=== PATIENT | female | born 1980 | race Caucasian/White ===

== ENCOUNTER 2020-03-05 09:00 | Inpatient (IN) ==
[2020-03-05] MEDS ORDERED: ONDANSETRON 4 MG/2 ML VIAL IV PRN (09:55)
[2020-03-05] MEDS: DIAZEPAM 10 MG TABLET PO PRN ×5 (12:36→23:45)
[2020-03-05] MEDS: THIAMINE 100 MG TABLET PO SCH ×2 (14:00→21:44)
[2020-03-05] MEDS: NICOTINE 21 MG PATCH TOPICAL SCH (14:01)
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
[2020-03-05] MEDS: ONDANSETRON 4 MG ODT TABLET SL PRN (15:15)
[2020-03-05] MEDS: 0.9 % SODIUM CHLORIDE 10 ML SYRINGE IV SCH ×2 (16:14→23:04)
[2020-03-05] MEDS: VITAMIN B COMPLEX 1 CAPSULE PO SCH (21:44)
[2020-03-05] MEDS: BACLOFEN 10 MG TABLET PO SCH (21:45)
[2020-03-05] MEDS: IBUPROFEN 800 MG TABLET PO PRN (21:45)
[2020-03-05] MEDS: DOCUSATE SODIUM 100 MG CAPSULE PO SCH (21:47)
[2020-03-05] MEDS: SENNOSIDES 1 TABLET PO SCH (21:47)
--- NOTE | 2020-03-05 23:03 | Internal Med History&Physical ---
HPI History of Present Illness Patient information: Note initiated : 03/05/20 at 11:00 pm Service Date, if different from initiated Date: [] Patient: Mehreen Devi 39 y/o F admitted on 03/05/20 for detox. Chief Complaint: [] History of present illness: This is a 39-year-old female with a no reported medical problems was admitted for alcohol withdrawal detoxification treatment. Patient has been drinking 5 vodka per day for the last few years. She reported I am a closet drinker patient denied any active other substance abuse or any family issues or other health issues. Review of system was unremarkable. Patient denied any active suicidal ideation. Patient had a previous attempt as a teenager when she tried to cut her vein. But no further suicidal ideation for the last few months. Patient lives with the family and good family support at home. Patient's dad has alcoholism and he drinks at home. Otherwise patient denied any social stressors or family stressors Constitutional Constitutional: Absent anorexia, excessive sweating, frequent falls, lethargy and snoring EENT Eyes: Absent irritation, loss of vision, photophobia, requires corrective lenses, spots in vision and tunnel vision Ears: Absent decreased hearing, ear discharge and tinnitus Nose, mouth and throat: Absent hoarseness, mouth pain, nasal obstruction, neck pain and post-nasal drip Breasts Breasts: Absent change in shape, mass and nipple discharge Cardiovascular Cardiovascular: Absent dyspnea, irregular heart rhythm, leg ulcers, palpatations, radiating pain and syncope Respiratory Respiratory: Absent cough, dyspnea, dyspnea on exertion, wheezing, stridor, pain on inspirtation, excessive phlegm production and change in phlegm color Gastrointestinal Gastrointestinal: Absent change in bowel habits, constipation, dyspepsia, excessive flatus, hematemesis, melena and tenesmus Genitourinary Genitourinary: Absent nipple discharge, post void dribbling, urinary frequency, urinary urgency and vaginal ordor Musculoskeletal Musculoskeletal: Absent limited range of motion, muscle weakness, numbness and tingling Neurological Neurological: Absent memory loss, radicular pain, syncope, vertigo and other Psychiatric Psychiatric: Absent depression, homicidal ideation, memory loss, paranoia and tactile Endocrine Endocrine: Absent deeping of the voice, flushing, palpitations and polyuria [facility] Medical History (Updated 06/29/20 @ 14:24 by Alexandria Quintana DO) Acid reflux (Chronic) Alcoholism (Chronic) Anxiety attack (Chronic) Daytime sleepiness (Chronic) Depression (Chronic) Difficulty communicating (Chronic) Difficulty sleeping (Chronic) Fatigue (Chronic) Fibromyalgia (Chronic) Generalized anxiety disorder (Chronic) Insomnia (Chronic) Joint pain (Chronic) Major depressive disorder (Chronic) Migraines (Chronic) Muscle pain (Chronic) PTSD (post-traumatic stress disorder) (Chronic) Raynauds disease (Chronic) Shakiness (Chronic) Stomach ulcer (Chronic) Withdrawal symptoms, alcohol (Chronic) Surgical History H/O colonoscopy (Chronic ~2017) Dr. Yoder History of hysterectomy (Chronic ~2017) History of knee surgery (Chronic ~2018) History of surgery (Chronic) Mass removed from inner thigh 2018 - Vaginal Repair History of wisdom tooth extraction (Chronic ~1994) Family History Mother Heart disease, congenital Adverse reaction to anesthetic agent Aspirated after anesthesia and HTN (hypertension) Migraines Brother Skin cancer Migraines Grandmother Colon cancer Maternal Adverse reaction to anesthetic agent Maternal Arthritis Maternal HTN (hypertension) Maternal Myocardial infarction Maternal Migraines Maternal CVA (cerebral vascular accident) Maternal Family/Other Colon cancer Uncle Son Migraines Social History (Updated 02/24/20 @ 08:48 by Camelia Vincent LPN) household members: family marital status: 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 status: Current every day smoker tobacco type: cigarettes per day: 20 alcohol intake frequency: former alcohol drinker substance use type: former substance user and marijuana MEDS/ALLERGIES Home Medications and Allergies Home Medications Medication Instructions Recorded Confirmed Type montelukast 10 mg tablet 10 mg PO QHS #30 tab 02/14/20 03/05/20 Rx disulfiram 250 mg tablet 250 mg PO QDAY #7 tab 02/16/20 03/05/20 Rx naltrexone 50 mg tablet 50 mg PO QDAY #20 tab 02/16/20 03/05/20 Rx Allergies Allergy/AdvReac Type Severity Reaction Status Date / Time lamotrigine [From Lamictal] Allergy Intermediate Other Verified 03/05/20 09:18 clindamycin AdvReac Mild Rash Verified 03/05/20 09:18 oxcarbazepine AdvReac Mild Rash Verified 03/05/20 09:18 Penicillins AdvReac Mild Nausea Verified 03/05/20 09:18 EXAM Constitutional Vitals: Temp Pulse Resp BP Pulse Ox 98.4 F 81 18 129/82 99 03/05/20 18:56 03/05/20 19:28 03/05/20 19:28 03/05/20 18:56 03/05/20 19:28 General appearance: no cooperative, no mild distress and no obese Head Head exam: Present atraumatic and normal inspection Eye Eye exam: Present EOMI; Absent periorbital swelling and scleral icterus ENT ENT exam: Present mucous membranes moist, normal exam and normal oropharynx Neck Neck exam: Absent lymphadenopathy, meningismus, tenderness and thyromegaly Respiratory Respiratory exam: Present normal respiratory exam and CTAB; Absent accessory muscle use, respiratory distress and wheezes Cardiovascular Cardiovascular exam: Absent irregular rhythm, JVD, RRR, +S3, +S4 and systolic murmur GI/Abdominal GI/Abdominal exam: Present soft and distended; Absent normal bowel sounds and diminished bowel sounds Extremities Exam Extremities exam: Present full ROM and normal inspection; Absent joint swelling, pedal edema and Pat's sign Neurological Exam Neurological exam: Present alert, CN II-XII intact, oriented X3 and reflexes normal; Absent motor sensory deficit Psychiatric Psychiatric exam: Absent agitated, anxious and depressed A/P Assessment and plan (1) Alcohol use disorder, severe, dependence: Status: Acute (2) Alcohol withdrawal: Status: Acute Qualifiers: Complication of substance-induced condition: uncomplicated Qualified Code(s): F10.230 - Alcohol dependence with withdrawal, uncomplicated (3) Generalized anxiety disorder: Status: Chronic Narrative A/P Narrative: Narrative: Acute alcohol withdrawal Patient was admitted for detoxification of alcohol withdrawal treatment Patient was started on CIWA protocol With a lorazepam and monitor CIWA scoring Patient at risk for seizures Patient denied any previous history of delirium tremens Behavioral health physician was consulted and following the patient No other reported medical problems DVT prophylaxis-frequent ambulation CODE STATUS-full code Time Spent With Patient Time: Total time spent is greater than 50% in coordination of care (as documented) at patient's floor/unit and/or counseling patient: QUALITY VTE Deep Vein Thrombosis/Pulmonary Embolism Present on Admission: No
[2020-03-06] MEDS: ONDANSETRON 4 MG ODT TABLET SL PRN ×3 (05:57→21:34)
[2020-03-06] MEDS: 0.9 % SODIUM CHLORIDE 10 ML SYRINGE IV SCH ×3 (06:09→21:34)
[2020-03-06] MEDS: IBUPROFEN 800 MG TABLET PO PRN (06:44)
[2020-03-06 06:47] LABS: Hematocrit 40.9 % (34.1-44.9); Mean Corpuscular HGB Conc 34.2 g/dL (31.0-36.0); Platelet Count 248 K/mcL (140-440); RBC 4.35 M/mcL (3.59-5.38); Red Cell Distribution Width 12.5 % (11.5-14.5); WBC 4.9 K/mcL (4.50-11.00)
[2020-03-06 06:58] LABS: INR 0.9 (0.9-1.1); Prothrombin Time 12.4 sec (11.9-14.5)
[2020-03-06] MEDS: DIAZEPAM 10 MG TABLET PO PRN ×5 (07:08→21:33)
[2020-03-06 07:09] LABS: ALT/SGPT 18 U/l (0-40); AST/SGOT 19 U/l (0-37); Albumin 4.3 gm/dL (3.2-5.2); Albumin/Globulin Ratio 1.9 (1.0-2.3); Alkaline Phosphatase 48 U/L (39-117); Bilirubin,Total 0.7 mg/dL (0.0-1.0); Blood Urea Nitrogen 18 mg/dl (6-20); Calcium 9.1 mg/dl (8.6-10.4); Carbon Dioxide 25 mmol/L (22-30); Chloride 102 mmol/L (96-108); Globulin 2.3 gm/dL (2.2-3.7); Glomerular Filtration Rate 92; Glucose 89 mg/dL (70-105)
[2020-03-06 07:29] LABS: Eosinophils % (Manual) 6 % (0-7); Lymphocytes % 36 % (15-49); Monocytes % (Manual) 5 % (1-12); Platelet Estimate NORMAL (NORMAL); RBC Morphology NORMAL (NORMAL); Reactive Lymphocytes 3 % (0-2); Segmented Neutrophils % 50 % (38-78)
[2020-03-06] MEDS: MULTIVIT,THER IRON,CA,FA & MIN 1 TABLET PO SCH (09:55)
[2020-03-06] MEDS: THIAMINE 100 MG TABLET PO SCH ×3 (09:55→21:33)
[2020-03-06] MEDS: VITAMIN B COMPLEX 1 CAPSULE PO SCH ×2 (09:55→21:33)
[2020-03-06] MEDS: BACLOFEN 10 MG TABLET PO SCH ×2 (09:56→21:33)
[2020-03-06] MEDS: NICOTINE 21 MG PATCH TOPICAL SCH (09:56)
[2020-03-06] MEDS: ENOXAPARIN 40 MG/0.4 ML SYRINGE SQ SCH (09:56)
[2020-03-06] MEDS: DOCUSATE SODIUM 100 MG CAPSULE PO SCH ×2 (09:59→23:49)
[2020-03-06] MEDS: GABAPENTIN 300 MG CAPSULE PO SCH ×3 (11:20→21:33)
--- NOTE | 2020-03-06 11:25 | Internal Med Progress Note ---
SUBJECTIVE Subjective Patient information: Note initiated : 03/06/20 at 11:23 am Service Date, if different from initiated Date: [] Patient: Mehreen Devi 39 y/o F admitted on 03/05/20 for detox. Chief Complaint: [] 39-year-old female with a no reported medical problems was admitted for alcohol withdrawal detoxification treatment. Patient has been drinking 5 vodka per day for the last few years. She reported I am a closet drinker patient denied any active other substance abuse or any family issues or other health issues. Review of system was unremarkable. Patient denied any active suicidal ideation. Patient had a previous attempt as a teenager when she tried to cut her vein. But no further suicidal ideation for the last few months. Patient lives with the family and good family support at home. Patient's dad has alcoholism and he drinks at home. Otherwise patient denied any social stressors or family stressors 03/06 Patient continued having some anxiety and depression Having some tremors and getting CIWA protocol with lorazepam Patient denied any other physical symptoms no constitutional symptoms No abdominal symptoms no diarrhea no constipation Interval history: Narrative: Constitutional Vitals: Vital Signs Temp Pulse Resp BP Pulse Ox 98.0 F 60 18 110/72 97 03/06/20 08:00 03/06/20 08:00 03/06/20 08:00 03/06/20 08:00 03/06/20 08:00 Period Temp Pulse Resp BP Sys/Candelaria Pulse Ox Last 24 Hr 97.6 F-98.4 F 60-81 12-18 95-135/63-93 97-99 Intake and Output 03/05/20 03/06/20 03/06/20 21:59 05:59 13:59 Intake Total 1160 300 240 Output Total 200 250 Balance 960 300 -10 Weight 187 lb 14.4 oz Intake & Output: Intake & Output 03/05/20 03/06/20 03/06/20 21:59 05:59 13:59 Intake Total 1160 300 240 Output Total 200 250 Balance 960 300 -10 Weight 187 lb 14.4 oz Intake: Oral 1160 300 240 Output: Void Amount 200 250 Other: Meal Breakfast Percent of Meal Consumed 75% Feeding Ability Independent Urine Appearance Clear Urine Color Straw Dark Yellow Urine Odor Normal Normal # Voids 1 1 General appearance: cooperative and no acute distress Head Head exam: Present atraumatic, normal inspection and normocephalic Eye Eye exam: Present EOMI; Absent periorbital swelling and scleral icterus ENT ENT exam: Present normal exam and normal oropharynx Neck Neck exam: Present normal inspection; Absent lymphadenopathy and tenderness Respiratory Respiratory exam: Absent accessory muscle use and respiratory distress Cardiovascular Cardiovascular exam: Present normal rate and rhythm; Absent bradycardia, JVD and tachycardia GI/Abdominal GI/Abdominal exam: Present normal bowel sounds and soft; Absent distended and tenderness Neurological Exam Neurological exam: Present alert, oriented X3 and reflexes normal; Absent motor sensory deficit Psychiatric Psychiatric exam: Present anxious and depressed; Absent agitated OBJ DATA Labs CBC & Chem 7: 03/06/20 05:37 03/06/20 05:37 Labs: Abnormal Lab Results 03/06/20 05:37 Reactive Lymphocytes 3 H Meds: Medications Baclofen (Lioresal) 10 mg PO BID [facility] Last Admin: 03/06/20 09:56 Dose: 10 mg Documented by: Diazepam (Valium) 10 mg PO Q1HP PRN PRN Reason: Anxiety/Agitation Last Admin: 03/06/20 11:20 Dose: 10 mg Documented by: Docusate Sodium (Colace) 100 mg PO BID [facility] Last Admin: 03/06/20 09:59 Dose: Not Given Documented by: Enoxaparin Sodium (Lovenox) 40 mg SQ DAILY [facility] Last Admin: 03/06/20 09:56 Dose: 40 mg Documented by: Gabapentin (Neurontin) 300 mg PO QID [facility] Last Admin: 03/06/20 11:20 Dose: 300 mg Documented by: Ibuprofen (Motrin) 400 mg PO Q6HP PRN; Protocol PRN Reason: Per Pain Protocol Iron Carb/Multivit/Locomotive Crane Engineer/Folic Acid (Multivitamin W/Minerals) 1 tab PO DAILY [facility] Last Admin: 03/06/20 09:55 Dose: 1 tab Documented by: Montelukast Sodium (Singular) 10 mg PO HS [facility] Nicotine (Nicoderm) 21 mg TOPICAL DAILY@1000 [facility] Last Admin: 03/06/20 09:56 Dose: 21 mg Documented by: Ondansetron HCl (Zofran Odt) 4 mg SL Q6HP PRN PRN Reason: Nausea And Vomiting Last Admin: 03/06/20 05:57 Dose: 4 mg Documented by: Pantoprazole Sodium (Protonix) 40 mg PO ACB [facility] Senna (Senokot) 2 tab PO HS [facility] Last Admin: 03/05/20 21:47 Dose: Not Given Documented by: Sodium Chloride (Saline Flush) 10 ml IV Q8 [facility] Last Admin: 03/06/20 06:09 Dose: Not Given Documented by: Thiamine HCl (Vitamin B1) 100 mg PO TID [facility] Stop: 03/08/20 09:01 Last Admin: 03/06/20 09:55 Dose: 100 mg Documented by: Vitamin B Complex (Vitamin B Complex) 1 cap PO BID [facility] Stop: 03/10/20 09:01 Last Admin: 03/06/20 09:55 Dose: 1 cap Documented by: A/P Assessment and plan (1) Alcohol use disorder, severe, dependence: Status: Acute (2) Alcohol withdrawal: Status: Acute Qualifiers: Complication of substance-induced condition: uncomplicated Qualified Code(s): F10.230 - Alcohol dependence with withdrawal, uncomplicated (3) Generalized anxiety disorder: Status: Chronic Narrative A/P Narrative: Narrative: Acute alcohol withdrawal Patient was admitted for detoxification of alcohol withdrawal treatment Patient was started on CIWA protocol With a lorazepam and monitor CIWA scoring Patient at risk for seizures Patient denied any previous history of delirium tremens Behavioral health physician was consulted and following the patient No other reported medical problems DVT prophylaxis-frequent ambulation CODE STATUS-full code Time Spent With Patient Time: Total time spent is greater than 50% in coordination of care (as documented) at patient's floor/unit and/or counseling patient: QUALITY VTE Deep Vein Thrombosis/Pulmonary Embolism Present on Admission: No
--- NOTE | 2020-03-06 11:50 | Internal Med Progress Note ---
SUBJECTIVE Subjective Patient information: Note initiated : 03/06/20 at 11:39 am Patient: Mehreen Devi 39 y/o F admitted on 03/05/20 for detox. Chief Complaint: alcohol withdrawal Interval history: Narrative: Patient has responded well to treatment with Valium and is being monitored with CIWA scores on an hourly basis. Patient's CIWA scores have ranged from 6-11 and she has received 40 mg of Valium in the last 24 hours with 20 mg of Valium being administered today. She is struggling with anxiety as well as nausea and mild tremor. Denies auditory, visual or tactile hallucinations. Patient denies vomiting, abdominal pain, chest pain or shortness of breath. Patient has been having mild headache which has improved with ibuprofen and she has been able to sleep for several hours. Admits to cravings for alcohol but is determined to maintain sobriety. Patient is able to tolerate solids as well as liquids. Constitutional Vitals: Vital Signs Temp Pulse Resp BP Pulse Ox 98.0 F 60 18 110/72 97 03/06/20 08:00 03/06/20 08:00 03/06/20 08:00 03/06/20 08:00 03/06/20 08:00 Period Temp Pulse Resp BP Sys/Candelaria Pulse Ox Last 24 Hr 97.6 F-98.4 F 60-81 12-18 95-135/63-93 97-99 Intake and Output 03/05/20 03/06/20 03/06/20 21:59 05:59 13:59 Intake Total 1160 300 240 Output Total 200 250 Balance 960 300 -10 Weight 187 lb 14.4 oz Intake & Output: Intake & Output 03/05/20 03/06/20 03/06/20 21:59 05:59 13:59 Intake Total 1160 300 240 Output Total 200 250 Balance 960 300 -10 Weight 187 lb 14.4 oz Intake: Oral 1160 300 240 Output: Void Amount 200 250 Other: Meal Breakfast Percent of Meal Consumed 75% Feeding Ability Independent Urine Appearance Clear Urine Color Straw Dark Yellow Urine Odor Normal Normal # Voids 1 1 General appearance: mild distress Head Head exam: Present normal inspection Eye Eye exam: Present EOMI and PERRL; Absent nystagmus ENT ENT exam: Present mucous membranes moist and normal oropharynx Respiratory Respiratory exam: Present normal respiratory exam; Absent rhonchi and wheezes Cardiovascular Cardiovascular exam: Present normal rate and rhythm; Absent irregular rhythm and JVD GI/Abdominal GI/Abdominal exam: Present normal bowel sounds, soft and tenderness (mild epigastric); Absent guarding, mass and rebound Extremities Exam Extremities exam: Present full ROM; Absent calf tenderness Additional comments: mild tremor upper extremities b/l Neurological Exam Neurological exam: Present CN II-XII intact, normal gait and oriented X3 Psychiatric Psychiatric exam: Present anxious OBJ DATA Labs CBC & Chem 7: 03/06/20 05:37 03/06/20 05:37 Labs: Abnormal Lab Results 03/06/20 05:37 Reactive Lymphocytes 3 H Meds: Medications Baclofen (Lioresal) 10 mg PO BID [facility] Last Admin: 03/06/20 09:56 Dose: 10 mg Documented by: Diazepam (Valium) 10 mg PO Q1HP PRN PRN Reason: Anxiety/Agitation Last Admin: 03/06/20 11:20 Dose: 10 mg Documented by: Docusate Sodium (Colace) 100 mg PO BID [facility] Last Admin: 03/06/20 09:59 Dose: Not Given Documented by: Enoxaparin Sodium (Lovenox) 40 mg SQ DAILY [facility] Last Admin: 03/06/20 09:56 Dose: 40 mg Documented by: Gabapentin (Neurontin) 300 mg PO QID [facility] Last Admin: 03/06/20 11:20 Dose: 300 mg Documented by: Ibuprofen (Motrin) 400 mg PO Q6HP PRN; Protocol PRN Reason: Per Pain Protocol Iron Carb/Multivit/[place]/Folic Acid (Multivitamin W/Minerals) 1 tab PO DAILY [facility] Last Admin: 03/06/20 09:55 Dose: 1 tab Documented by: Montelukast Sodium (Singular) [address] [facility] Nicotine (Nicoderm) 21 mg TOPICAL DAILY@1000 [facility] Last Admin: 03/06/20 09:56 Dose: 21 mg Documented by: Ondansetron HCl (Zofran Odt) 4 mg SL Q6HP PRN PRN Reason: Nausea And Vomiting Last Admin: 03/06/20 05:57 Dose: 4 mg Documented by: Pantoprazole Sodium (Protonix) 40 mg PO ACB [facility] Senna (Senokot) [address] [facility] Last Admin: 03/05/20 21:47 Dose: Not Given Documented by: Sodium Chloride (Saline Flush) 10 ml IV Q8 [facility] Last Admin: 03/06/20 06:09 Dose: Not Given Documented by: Thiamine HCl (Vitamin B1) 100 mg PO TID [facility] Stop: 03/08/20 09:01 Last Admin: 03/06/20 09:55 Dose: 100 mg Documented by: Vitamin B Complex (Vitamin B Complex) 1 cap PO BID [facility] Stop: 03/10/20 09:01 Last Admin: 03/06/20 09:55 Dose: 1 cap Documented by: A/P Assessment and plan (1) Alcohol use disorder, severe, dependence: Status: Acute (2) Alcohol withdrawal: Status: Acute Qualifiers: Complication of substance-induced condition: uncomplicated Qualified Code(s): F10.230 - Alcohol dependence with withdrawal, uncomplicated (3) Generalized anxiety disorder: Status: Chronic Narrative A/P Narrative: Narrative: Patient is an active alcohol withdrawal. Patient has responded well to treatm ent with diazepam and we will continue her on the protocol PRN CIWA scores. Patient CIWA score at that time is 6. I am going to start gabapentin 300 mg 3 times daily as well as Protonix 40 mg daily progress GERD. Anticipate increasing the frequency of CIWA monitoring should patient CIWA scores start coming down. Continue baclofen as prescribed. Close follow-up 1 day Time Spent With Patient Time: Total time spent is greater than 50% in coordination of care (as documented) at patient's floor/unit and/or counseling patient:25 min Coordinated care with the nursing staff as well as with Dr.Menon HANSON VTE Deep Vein Thrombosis/Pulmonary Embolism Present on Admission: No
--- NOTE | 2020-03-06 14:14 | Internal Med Progress Note ---
SUBJECTIVE Subjective Patient information: Note initiated : 03/06/20 at 2:12 pm Service Date, if different from initiated Date: [] Patient: Mehreen Devi 39 y/o F admitted on 03/05/20 for detox. Chief Complaint: [] Interval history: Narrative: 39-year-old female with a no reported medical problems was admitted for alcohol withdrawal detoxification treatment. Patient has been drinking 5 vodka per day for the last few years. She reported I am a closet drinker patient denied any active other substance abuse or any family issues or other health issues. Review of system was unremarkable. Patient denied any active suicidal ideation. Patient had a previous attempt as a teenager when she tried to cut her vein. But no further suicidal ideation for the last few months. Patient lives with the family and good family support at home. Patient's dad has alcoholism and he drinks at home. Otherwise patient denied any social stressors or family stressors 03/06 Patient continued having some anxiety and depression Having some tremors and getting CIWA protocol with lorazepam Patient denied any other physical symptoms no constitutional symptoms No abdominal symptoms no diarrhea no constipation 03/07 Constitutional Vitals: Vital Signs Temp Pulse Resp BP Pulse Ox 97.2 F 61 20 120/83 99 03/06/20 12:00 03/06/20 12:00 03/06/20 12:00 03/06/20 12:00 03/06/20 12:00 Period Temp Pulse Resp BP Sys/Candelaria Pulse Ox Last 24 Hr 97.2 F-98.4 F 60-81 12-20 95-129/63-85 97-99 Intake and Output 03/06/20 03/06/20 03/06/20 05:59 13:59 21:59 Intake Total 300 480 Output Total 250 Balance 300 230 Weight 85.23 kg Patient Weight 03/07/20 05:59 Weight 85.23 kg Intake & Output: Intake & Output 03/06/20 03/06/20 03/06/20 05:59 13:59 21:59 Intake Total 300 480 Output Total 250 Balance 300 230 Weight 85.23 kg Intake: Oral 300 480 Output: Void Amount 250 Other: Meal Lunch Percent of Meal Consumed 100% Feeding Ability Independent Urine Appearance Clear Urine Color Dark Yellow Urine Odor Normal # Voids 1 Exam: General: Alert, Awake, No acute Distress Eyes/N/T: EOMI, Head/Neck: neck supple, CV: RRR, No murmurs, Pulm: Clear b/l, no wheezing/rhonchi/rales Abd: soft, nontender, +BS x4 Ext: no clubbing/cyanosis/edema Neuro: Alert, no focal deficits, moves all extremities, Skin: warm/dry OBJ DATA Labs CBC & Chem 7: 03/06/20 05:37 03/06/20 05:37 Labs: Abnormal Lab Results 03/06/20 05:37 Reactive Lymphocytes 3 H Meds: Medications Baclofen (Lioresal) 10 mg PO BID [facility] Last Admin: 03/06/20 09:56 Dose: 10 mg Documented by: Diazepam (Valium) 10 mg PO Q1HP PRN PRN Reason: Anxiety/Agitation Last Admin: 03/06/20 11:20 Dose: 10 mg Documented by: Docusate Sodium (Colace) 100 mg PO BID [facility] Last Admin: 03/06/20 09:59 Dose: Not Given Documented by: Enoxaparin Sodium (Lovenox) 40 mg SQ DAILY [facility] Last Admin: 03/06/20 09:56 Dose: 40 mg Documented by: Gabapentin (Neurontin) 300 mg PO QID [facility] Last Admin: 03/06/20 11:20 Dose: 300 mg Documented by: Ibuprofen (Motrin) 400 mg PO Q6HP PRN; Protocol PRN Reason: Per Pain Protocol Iron Carb/Multivit/Burn Table Operator/Folic Acid (Multivitamin W/Minerals) 1 tab PO DAILY [facility] Last Admin: 03/06/20 09:55 Dose: 1 tab Documented by: Montelukast Sodium (Singular) 10 mg PO [facility] Nicotine (Nicoderm) 21 mg TOPICAL DAILY@1000 [facility] Last Admin: 03/06/20 09:56 Dose: 21 mg Documented by: Ondansetron HCl (Zofran Odt) 4 mg SL Q6HP PRN PRN Reason: Nausea And Vomiting Last Admin: 03/06/20 05:57 Dose: 4 mg Documented by: Pantoprazole Sodium (Protonix) 40 mg PO ACB [facility] Senna (Senokot) 2 tab PO [facility] Last Admin: 03/05/20 21:47 Dose: Not Given Documented by: Sodium Chloride (Saline Flush) 10 ml IV Q8 [facility] Last Admin: 03/06/20 06:09 Dose: Not Given Documented by: Thiamine HCl (Vitamin B1) 100 mg PO TID [facility] Stop: 03/08/20 09:01 Last Admin: 03/06/20 09:55 Dose: 100 mg Documented by: Vitamin B Complex (Vitamin B Complex) 1 cap PO BID [facility] Stop: 03/10/20 09:01 Last Admin: 03/06/20 09:55 Dose: 1 cap Documented by: A/P Assessment and plan (1) Alcohol use disorder, severe, dependence: Status: Acute (2) Alcohol withdrawal: Status: Acute Qualifiers: Complication of substance-induced condition: uncomplicated Qualified Code(s): F10.230 - Alcohol dependence with withdrawal, uncomplicated (3) Generalized anxiety disorder: Status: Chronic Narrative A/P Narrative: A: *Acute alcohol withdrawal: Patient was admitted for detoxification of alcohol withdrawal treatment P: -procotol per Dr. Quintana -No other reported medical problems -DVT prophylaxis-frequent ambulation Time Spent With Patient Time: Total time spent is greater than 50% in coordination of care (as documented) at patient's floor/unit and/or counseling patient: QUALITY VTE Deep Vein Thrombosis/Pulmonary Embolism Present on Admission: No
[2020-03-06] MEDS: IBUPROFEN 200 MG TABLET PO PRN ×2 (15:02→21:33)
[2020-03-06] MEDS: MONTELUKAST 10 MG TABLET PO SCH (21:33)
[2020-03-06] MEDS: SENNOSIDES 1 TABLET PO SCH (23:49)
[2020-03-07] MEDS: IBUPROFEN 200 MG TABLET PO PRN ×3 (04:48→19:22)
[2020-03-07] MEDS: ONDANSETRON 4 MG ODT TABLET SL PRN ×2 (04:48→09:13)
[2020-03-07] MEDS: DIAZEPAM 10 MG TABLET PO PRN (04:51)
[2020-03-07 07:36] LABS: INR 0.9 (0.9-1.1); Prothrombin Time 12.7 sec (11.9-14.5)
[2020-03-07 07:52] LABS: ALT/SGPT 19 U/l (0-40); AST/SGOT 20 U/l (0-37); Albumin 4.3 gm/dL (3.2-5.2); Alkaline Phosphatase 52 U/L (39-117); Bilirubin,Total 0.4 mg/dL (0.0-1.0); Blood Urea Nitrogen 20 mg/dl (6-20); Calcium 9.1 mg/dl (8.6-10.4); Carbon Dioxide 24 mmol/L (22-30); Chloride 104 mmol/L (96-108); Globulin 2.2 gm/dL (2.2-3.7); Glomerular Filtration Rate 70; Glucose 105 mg/dL (70-105)
--- NOTE | 2020-03-07 07:54 | Internal Med Progress Note ---
SUBJECTIVE Subjective Patient information: Note initiated : 03/07/20 at 7:53 am Service Date, if different from initiated Date: [] Patient: Mehreen Devi 39 y/o F admitted on 03/05/20 for detox. Chief Complaint: [] Interval history: Narrative: Interval history: Narrative: 39-year-old female with a no reported medical problems was admitted for alcohol withdrawal detoxification treatment. Patient has been drinking 5 vodka per day for the last few years. She reported I am a closet drinker patient denied any active other substance abuse or any family issues or other health issues. Review of system was unremarkable. Patient denied any active suicidal ideation. Patient had a previous attempt as a teenager when she tried to cut her vein. But no further suicidal ideation for the last few months. Patient lives with the family and good family support at home. Patient's dad has alcoholism and he drinks at home. Otherwise patient denied any social stressors or family stressors 03/06 Patient continued having some anxiety and depression Having some tremors and getting CIWA protocol with lorazepam Patient denied any other physical symptoms no constitutional symptoms No abdominal symptoms no diarrhea no constipation 03/07 Patient states she slept better than she has in a long time. She did have elevated ciwa score last night did receive treatment. She does have headaches which is pretty common for her and some nausea. Review of Systems: denies fever/chills/vomiting/chest or abdominal pain/cough/dyspnea/diarrhea. Otherwise see above. Constitutional Vitals: Vital Signs Temp Pulse Resp BP Pulse Ox 97.8 F 70 18 113/80 94 03/07/20 04:37 03/07/20 04:37 03/07/20 04:37 03/07/20 04:37 03/07/20 04:37 Period Temp Pulse Resp BP Sys/Candelaria Pulse Ox Last 24 Hr 97.2 F-98.6 F 58-78 16-22 91-120/57-83 94-99 Intake and Output 03/06/20 03/07/20 03/07/20 21:59 05:59 13:59 Intake Total 1600 300 Output Total 800 Balance 1600 -500 Weight 85.275 kg Intake & Output: Intake & Output 03/06/20 03/07/20 03/07/20 21:59 05:59 13:59 Intake Total 1600 300 Output Total 800 Balance 1600 -500 Weight 85.275 kg Intake: Oral 1600 300 Output: Void Amount 800 Other: Meal Dinner Percent of Meal Consumed 100% Urine Appearance Clear Clear Urine Color Dark Yellow Bright Yellow Urine Odor Normal # Voids 1 Exam: General: Alert, Awake, No acute Distress Eyes/N/T: EOMI, Head/Neck: neck supple, CV: RRR, No murmurs, Pulm: Clear b/l, no wheezing/rhonchi/rales Abd: soft, nontender, +BS x4 Ext: no clubbing/cyanosis/edema Neuro: Alert, no focal deficits, moves all extremities, Skin: warm/dry OBJ DATA Labs CBC & Chem 7: 03/06/20 05:37 03/07/20 05:49 Labs: Abnormal Lab Results 03/06/20 05:37 Reactive Lymphocytes 3 H Meds: Medications Baclofen (Lioresal) 10 mg PO BID [facility] Last Admin: 03/06/20 21:33 Dose: 10 mg Documented by: Diazepam (Valium) 10 mg PO Q1HP PRN PRN Reason: Anxiety/Agitation Last Admin: 03/07/20 04:51 Dose: 10 mg Documented by: Docusate Sodium (Colace) 100 mg PO BID [facility] Last Admin: 03/06/20 23:49 Dose: Not Given Documented by: Enoxaparin Sodium (Lovenox) 40 mg SQ DAILY [facility] Last Admin: 03/06/20 09:56 Dose: 40 mg Documented by: Gabapentin (Neurontin) 300 mg PO QID [facility] Last Admin: 03/06/20 21:33 Dose: 300 mg Documented by: Ibuprofen (Motrin) 400 mg PO Q6HP PRN; Protocol PRN Reason: Per Pain Protocol Last Admin: 03/07/20 04:48 Dose: 400 mg Documented by: Iron Carb/Multivit/[place]/Folic Acid (Multivitamin W/Minerals) 1 tab PO DAILY [facility] Last Admin: 03/06/20 09:55 Dose: 1 tab Documented by: Montelukast Sodium (Singular) 10 mg PO HS [facility] Last Admin: 03/06/20 21:33 Dose: 10 mg Documented by: Nicotine (Nicoderm) 21 mg TOPICAL DAILY@1000 [facility] Last Admin: 03/06/20 09:56 Dose: 21 mg Documented by: Ondansetron HCl (Zofran Odt) 4 mg SL Q6HP PRN PRN Reason: Nausea And Vomiting Last Admin: 03/07/20 04:48 Dose: 4 mg Documented by: Pantoprazole Sodium (Protonix) 40 mg PO ACB [facility] Senna (Senokot) 2 tab PO HS [facility] Last Admin: 03/06/20 23:49 Dose: Not Given Documented by: Sodium Chloride (Saline Flush) 10 ml IV Q8 [facility] Last Admin: 03/06/20 21:34 Dose: Not Given Documented by: Thiamine HCl (Vitamin B1) 100 mg PO TID [facility] Stop: 03/08/20 09:01 Last Admin: 03/06/20 21:33 Dose: 100 mg Documented by: Vitamin B Complex (Vitamin B Complex) 1 cap PO BID [facility] Stop: 03/10/20 09:01 Last Admin: 03/06/20 21:33 Dose: 1 cap Documented by: A/P Assessment and plan (1) Alcohol use disorder, severe, dependence: Status: Acute (2) Alcohol withdrawal: Status: Acute Qualifiers: Complication of substance-induced condition: uncomplicated Qualified Code(s): F10.230 - Alcohol dependence with withdrawal, uncomplicated (3) Generalized anxiety disorder: Status: Chronic Narrative A/P Narrative: A: *Acute alcohol withdrawal: Patient was admitted for detoxification of alcohol withdrawal treatment *no other reported medical problems P: -procotol per Dr. Quintana -DVT prophylaxis-frequent ambulation Time Spent With Patient Time: Total time spent is greater than 50% in coordination of care (as documented) at patient's floor/unit and/or counseling patient: QUALITY VTE Deep Vein Thrombosis/Pulmonary Embolism Present on Admission: No
[2020-03-07] MEDS ORDERED: LATUDA 20 MG PO SCH ×2 (09:00→13:00)
[2020-03-07] MEDS: ENOXAPARIN 40 MG/0.4 ML SYRINGE SQ SCH ×2 (09:09→09:19)
[2020-03-07] MEDS: BACLOFEN 10 MG TABLET PO SCH ×2 (09:09→21:06)
[2020-03-07] MEDS: MULTIVIT,THER IRON,CA,FA & MIN 1 TABLET PO SCH (09:09)
[2020-03-07] MEDS: GABAPENTIN 300 MG CAPSULE PO SCH ×4 (09:09→21:05)
[2020-03-07] MEDS ORDERED: chlordiazePOXIDE 25 MG CAPSULE PO ONE (09:12)
[2020-03-07] MEDS: THIAMINE 100 MG TABLET PO SCH ×3 (09:13→21:04)
[2020-03-07] MEDS: VITAMIN B COMPLEX 1 CAPSULE PO SCH ×2 (09:13→21:04)
[2020-03-07] MEDS: DOCUSATE SODIUM 100 MG CAPSULE PO SCH ×2 (09:31→21:05)
[2020-03-07] MEDS: 0.9 % SODIUM CHLORIDE 10 ML SYRINGE IV SCH ×4 (09:31→21:08)
[2020-03-07] MEDS: PANTOPRAZOLE 40 MG PACKET PO SCH (09:31)
[2020-03-07] MEDS: NICOTINE 21 MG PATCH TOPICAL SCH (09:32)
[2020-03-07] MEDS: ACETAMINOPHEN 500 MG TABLET PO PRN ×2 (12:58→19:23)
--- NOTE | 2020-03-07 20:01 | Internal Med Progress Note ---
SUBJECTIVE Subjective Patient information: Note initiated : 03/07/20 at 7:51 pm Service Date, if different from initiated Date: [] Patient: Mehreen Devi 39 y/o F admitted on 03/05/20 for detox. Chief Complaint: alcohol withdrawal Interval history: Narrative: Patient appears to be quite tearful at bedside. She states that she has slept better and denies having tremors. Patient denies auditory, visual or tactile hallucinations. Patient states that she is struggling with anxiety and is concerned about the situation at home with her partner, her children and her father. Patient states that she is struggling with depression and has a tendency to get easily overwhelmed. She states that she thought she will be completely cured of her anxiety and depression if she went into the inpatient setting. Patient is committed to sobriety and is d enying cravings. Constitutional Vitals: Vital Signs Temp Pulse Resp BP Pulse Ox 97.9 F 84 16 106/68 97 03/07/20 19:26 03/07/20 19:26 03/07/20 19:26 03/07/20 19:26 03/07/20 19:26 Period Temp Pulse Resp BP Sys/Candelaria Pulse Ox Last 24 Hr 97.7 F-98.5 F 58-84 16-18 91-113/57-80 94-98 Intake and Output 03/07/20 03/07/20 03/07/20 05:59 13:59 21:59 Intake Total 300 700 Output Total 800 Balance -500 700 Intake & Output: Intake & Output 03/07/20 03/07/20 03/07/20 05:59 13:59 21:59 Intake Total 300 700 Output Total 800 Balance -500 700 Intake: Oral 300 700 Output: Void Amount 800 Other: Meal Dinner Percent of Meal Consumed 100% Urine Appearance Clear Urine Color Bright Yellow # Voids 1 General appearance: mild distress Head Head exam: Present normocephalic Eye Eye exam: Present EOMI, normal appearance and PERRL; Absent conjunctival injection and nystagmus Pupils: Present PERRL ENT ENT exam: Present mucous membranes moist and normal oropharynx Respiratory Respiratory exam: Present CTAB; Absent rales, respiratory distress, rhonchi, str idor and wheezes Cardiovascular Cardiovascular exam: Present normal rate and rhythm; Absent diastolic murmur and JVD GI/Abdominal GI/Abdominal exam: Present normal bowel sounds and soft; Absent distended, g uarding, mass and tenderness Psychiatric Psychiatric exam: Present anxious and depressed; Absent suicidal ideation Additional comments: tearful OBJ DATA Labs CBC & Chem 7: 03/06/20 05:37 03/07/20 05:49 Labs: Abnormal Lab Results 03/06/20 05:37 Reactive Lymphocytes 3 H Meds: Medications Acetaminophen (Tylenol) 500 mg PO Q6HP PRN; Protocol PRN Reason: Per Pain Protocol/Fever > 101 Last Admin: 03/07/20 19:23 Dose: 500 mg Documented by: Baclofen (Lioresal) 10 mg PO BID [facility] Last Admin: 03/07/20 09:09 Dose: 10 mg Documented by: Docusate Sodium (Colace) 100 mg PO BID [facility] Last Admin: 03/07/20 09:31 Dose: Not Given Documented by: Enoxaparin Sodium (Lovenox) 40 mg SQ DAILY [facility] Last Admin: 03/07/20 09:19 Dose: 40 mg Documented by: Gabapentin (Neurontin) 300 mg PO QID [facility] Last Admin: 03/07/20 17:12 Dose: 300 mg Documented by: Ibuprofen (Motrin) 400 mg PO Q6HP PRN; Protocol PRN Reason: Per Pain Protocol Last Admin: 03/07/20 19:22 Dose: 400 mg Documented by: Iron Carb/Multivit/Travis/Folic Acid (Multivitamin W/Minerals) 1 tab PO DAILY [facility] Last Admin: 03/07/20 09:09 Dose: 1 tab Documented by: Montelukast Sodium (Singular) [address] [facility] Last Admin: 03/06/20 21:33 Dose: 10 mg Documented by: Nicotine (Nicoderm) 21 mg TOPICAL DAILY@1000 [facility] Last Admin: 03/07/20 09:32 Dose: 21 mg Documented by: Ondansetron HCl (Zofran Odt) 4 mg SL Q6HP PRN PRN Reason: Nausea And Vomiting Last Admin: 03/07/20 09:13 Dose: 4 mg Documented by: Pantoprazole Sodium (Protonix) 40 mg PO ACB [facility] Last Admin: 03/07/20 09:31 Dose: 40 mg Documented by: Latuda 20 Mg Tablets 1 dose PO DAILY [facility] Senna (Senokot) [address] [facility] Last Admin: 06/30/20 23:49 Dose: Not Given Documented by: Sodium Chloride (Saline Flush) 10 ml IV Q8 [facility] Last Admin: 03/07/20 12:49 Dose: Not Given Documented by: Thiamine HCl (Vitamin B1) 100 mg PO TID [facility] Stop: 03/08/20 09:01 Last Admin: 03/07/20 14:53 Dose: 100 mg Documented by: Vitamin B Complex (Vitamin B Complex) 1 cap PO BID [facility] Stop: 03/10/20 09:01 Last Admin: 03/07/20 09:13 Dose: 1 cap Documented by: A/P Assessment and plan (1) Alcohol use disorder, severe, dependence: Status: Acute (2) Alcohol withdrawal: Status: Acute Qualifiers: Complication of substance-induced condition: uncomplicated Qualified Code(s): F10.230 - Alcohol dependence with withdrawal, uncomplicated (3) Generalized anxiety disorder: Status: Chronic (4) Bipolar 1 disorder: Status: Acute Narrative A/P Narrative: Narrative: Patient has received 40 mg of Valium 1 day ago and has received 10 mg of Valium today. His CIWA score is 6 and we discussed transitioning patient to a long acting Librium. I will transition patient to Librium 25 mg p.o. one-time dose today with continuing closely monitored CIWA scores every 4 hours. Continue patient on baclofen as well as gabapentin. Patient has previously been diagnosed with bipolar disorder and is not receiving medication management and we discussed starting patient on Latuda 20 mg 1 p.o. daily. Discussed risks versus benefits and patient agrees to take the medication despite the risk. Continue closely monitoring patient was anticipated discharge set for tomorrow. Close follow-up 1 day Psychotherapy time with patient has been 20 minutes at bedside. Utilized motivational interviewing and exploring reasons for patient to get sober and maintain sobriety. Discussed pathophysiology of the addictive brain and explored barriers in recovery. Discussed the importance of taking accountability for 1 section and taking control over once life and getting to know oneself on a deeper level. Worked on strategies to decrease anxiety and counseled patient on the impact of controlled bipolar disorder in her recovery as well as treatment plan. Time Spent With Patient Time: Total time spent is greater than 50% in coordination of care (as documented) at patient's floor/unit and/or counseling patient: Total time spent with greater than 50% in coordination of care (as documented) at patient's floor/unit and/or counseling patient:: 25 - 35 minutes QUALITY VTE Deep Vein Thrombosis/Pulmonary Embolism Present on Admission: No
[2020-03-07] MEDS: SENNOSIDES 1 TABLET PO SCH (21:04)
[2020-03-07] MEDS: MONTELUKAST 10 MG TABLET PO SCH (21:05)
[2020-03-08] MEDS: IBUPROFEN 200 MG TABLET PO PRN (01:40)
[2020-03-08] MEDS: 0.9 % SODIUM CHLORIDE 10 ML SYRINGE IV SCH (04:42)
[2020-03-08] MEDS: PANTOPRAZOLE 40 MG PACKET PO SCH (07:19)
--- NOTE | 2020-03-08 07:35 | Internal Med Progress Note ---
SUBJECTIVE Subjective Patient information: Note initiated : 03/08/20 at 7:34 am Service Date, if different from initiated Date: [] Patient: Mehreen Devi 39 y/o F admitted on 03/05/20 for detox. Chief Complaint: [] Interval history: 39-year-old female with a no reported medical problems was admitted for alcohol withdrawal detoxification treatment. Patient has been drinking 5 vodka per day for the last few years. She reported I am a closet d natalie patient denied any active other substance abuse or any family issues or other health issues. Review of system was unremarkable. Patient denied any active suicidal ideation. Patient had a previous attempt as a teenager when she tried to cut her vein. But no further suicidal ideation for the last few months. Patient lives with the family and good family support at home. Patient's dad has alcoholism and he drinks at home. Otherwise patient denied any social stressors or family stressors 03/06 Patient continued having some anxiety and depression Having some tremors and getting CIWA protocol with lorazepam Patient denied any other physical symptoms no constitutional symptoms No abdominal symptoms no diarrhea no constipation 03/07 Patient states she slept better than she has in a long time. She did have elevated ciwa score last night did receive treatment. She does have headaches which is pretty common for her and some nausea. 03/08 Slept well and feeling little better today. Eager to be discharged. Constitutional Vitals: Vital Signs Temp Pulse Resp BP Pulse Ox 98.7 F 58 L 14 103/60 98 03/08/20 03:48 03/08/20 03:48 03/08/20 03:48 03/08/20 03:48 03/08/20 03:48 Period Temp Pulse Resp BP Sys/Candelaria Pulse Ox Last 24 Hr 97.7 F-98.7 F 50-84 12-16 96-106/56-77 95-98 Intake and Output 03/07/20 03/08/20 03/08/20 21:59 05:59 13:59 Intake Total 700 400 Balance 700 400 Weight 86.183 kg Intake & Output: Intake & Output 03/07/20 03/08/20 03/08/20 21:59 05:59 13:59 Intake Total 700 400 Balance 700 400 Weight 86.183 kg Intake: Oral 700 400 Other: Meal Dinner Percent of Meal Consumed 100% Urine Appearance Clear Urine Color Light Karen Urine Odor Strong # Voids 1 1 Exam: General: Alert, Awake, No acute Distress Eyes/N/T: EOMI, Head/Neck: neck supple, CV: RRR, No murmurs, Pulm: Clear b/l, no wheezing/rhonchi/rales Abd: soft, nontender, +BS x4 Ext: no clubbing/cyanosis/edema Neuro: Alert, no focal deficits, moves all extremities, Skin: warm/dry OBJ DATA Labs CBC & Chem 7: 03/06/20 05:37 03/08/20 05:44 Labs: Abnormal Lab Results 03/06/20 05:37 Reactive Lymphocytes 3 H Meds: Medications Acetaminophen (Tylenol) 500 mg PO Q6HP PRN; Protocol PRN Reason: Per Pain Protocol/Fever > 101 Last Admin: 03/07/20 19:23 Dose: 500 mg Documented by: Baclofen (Lioresal) 10 mg PO BID [facility] Last Admin: 03/07/20 21:06 Dose: 10 mg Documented by: Docusate Sodium (Colace) 100 mg PO BID [facility] Last Admin: 03/07/20 21:05 Dose: 100 mg Documented by: Enoxaparin Sodium (Lovenox) 40 mg SQ DAILY [facility] Last Admin: 03/07/20 09:19 Dose: 40 mg Documented by: Gabapentin (Neurontin) 300 mg PO QID [facility] Last Admin: 03/07/20 21:05 Dose: 300 mg Documented by: Ibuprofen (Motrin) 400 mg PO Q6HP PRN; Protocol PRN Reason: Per Pain Protocol Last Admin: 03/08/20 01:40 Dose: 400 mg Documented by: Iron Carb/Multivit/Ceramic Products Sales Engineer/Folic Acid (Multivitamin W/Minerals) 1 tab PO DAILY [facility] Last Admin: 03/07/20 09:09 Dose: 1 tab Documented by: Montelukast Sodium (Singular) 10 mg PO HS [facility] Last Admin: 03/07/20 21:05 Dose: 10 mg Documented by: Nicotine (Nicoderm) 21 mg TOPICAL DAILY@1000 [facility] Last Admin: 03/07/20 09:32 Dose: 21 mg Documented by: Ondansetron HCl (Zofran Odt) 4 mg SL Q6HP PRN PRN Reason: Nausea And Vomiting Last Admin: 03/07/20 09:13 Dose: 4 mg Documented by: Pantoprazole Sodium (Protonix) 40 mg PO ACB [facility] Last Admin: 03/08/20 07:19 Dose: 40 mg Documented by: Latuda 20 Mg Tablets 1 dose PO DAILY [facility] Senna (Senokot) 2 tab PO HS [facility] Last Admin: 03/07/20 21:04 Dose: 2 tab Documented by: Sodium Chloride (Saline Flush) 10 ml IV Q8 [facility] Last Admin: 03/08/20 04:42 Dose: Not Given Documented by: Thiamine HCl (Vitamin B1) 100 mg PO TID [facility] Stop: 03/08/20 09:01 Last Admin: 03/07/20 21:04 Dose: 100 mg Documented by: Vitamin B Complex (Vitamin B Complex) 1 cap PO BID [facility] Stop: 03/10/20 09:01 Last Admin: 03/07/20 21:04 Dose: 1 cap Documented by: A/P Assessment and plan (1) Alcohol use disorder, severe, dependence: Status: Acute (2) Alcohol withdrawal: Status: Acute Qualifiers: Complication of substance-induced condition: uncomplicated Qualified Code(s): F10.230 - Alcohol dependence with withdrawal, uncomplicated (3) Generalized anxiety disorder: Status: Chronic (4) Bipolar 1 disorder: Status: Acute Narrative A/P Narrative: A: *Acute alcohol withdrawal: Patient was admitted for detoxification of alcohol withdrawal treatment *no other reported medical problems P: -procotol per Dr. Quintana -DVT prophylaxis-frequent ambulation Time Spent With Patient Time: Total time spent is greater than 50% in coordination of care (as docu mented) at patient's floor/unit and/or counseling patient: QUALITY VTE Deep Vein Thrombosis/Pulmonary Embolism Present on Admission: No
[2020-03-08 07:43] LABS: ALT/SGPT 18 U/l (0-40); AST/SGOT 22 U/l (0-37); Albumin 4.1 gm/dL (3.2-5.2); Albumin/Globulin Ratio 1.6 (1.0-2.3); Alkaline Phosphatase 50 U/L (39-117); Bilirubin,Total 0.2 mg/dL (0.0-1.0); Blood Urea Nitrogen 24 mg/dl (6-20); Calcium 9.3 mg/dl (8.6-10.4); Carbon Dioxide 23 mmol/L (22-30); Chloride 105 mmol/L (96-108); Globulin 2.5 gm/dL (2.2-3.7); Glomerular Filtration Rate 79; Glucose 95 mg/dL (70-105)
[2020-03-08] MEDS: GABAPENTIN 300 MG CAPSULE PO SCH (09:00)
[2020-03-08] MEDS: THIAMINE 100 MG TABLET PO SCH (09:00)
[2020-03-08] MEDS: ENOXAPARIN 40 MG/0.4 ML SYRINGE SQ SCH (09:00)
[2020-03-08] MEDS ORDERED: LATUDA 20 MG PO SCH (09:00)
[2020-03-08] MEDS: BACLOFEN 10 MG TABLET PO SCH (09:01)
[2020-03-08] MEDS: MULTIVIT,THER IRON,CA,FA & MIN 1 TABLET PO SCH (09:01)
[2020-03-08] MEDS: VITAMIN B COMPLEX 1 CAPSULE PO SCH (09:01)
[2020-03-08] MEDS: DOCUSATE SODIUM 100 MG CAPSULE PO SCH (09:03)
[2020-03-08] MEDS: NICOTINE 21 MG PATCH TOPICAL SCH (09:10)
--- NOTE | 2020-03-08 10:04 | Internal Med Progress Note ---
SUBJECTIVE Subjective Patient information: Note initiated : 03/08/20 at 9:55 am Service Date, if different from initiated Date: [] Patient: Mehreen Devi 39 y/o F admitted on 03/05/20 for detox. Chief Complaint: alcohol withdrawal Principal diagnosis: alcohol use disorder Interval history: Narrative: Patient's CIWA score is 2 and her last dose of Librium 25 mg was 1 day ago. Patient denies tremors, chest pain, shortness of breath, auditory, visual or tactile hallucinations. She states that she has been sleeping well. Patient does admit to being triggered by cravings through use of a hand cotton broker. Patient states that she is ready to go home and is going to be met with a supportive family. Patient did start yesterday on Latuda and is experiencing mild dizziness which we discussed is a transient side effect which should resolve. No other concerns and patient denies nausea, vomiting or abdominal pain. Constitutional Vitals: Vital Signs Temp Pulse Resp BP Pulse Ox 97.4 F 58 L 14 120/80 98 03/08/20 08:00 03/08/20 08:00 03/08/20 08:00 03/08/20 08:00 03/08/20 08:00 Period Temp Pulse Resp BP Sys/Candelaria Pulse Ox Last 24 Hr 97.4 F-98.7 F 50-84 12-16 96-120/56-80 95-98 Intake and Output 03/07/20 03/08/20 03/08/20 21:59 05:59 13:59 Intake Total 700 400 Balance 700 400 Weight 190 lb Intake & Output: Intake & Output 03/07/20 03/08/20 03/08/20 21:59 05:59 13:59 Intake Total 700 400 Balance 700 400 Weight 190 lb Intake: Oral 700 400 Other: Meal Dinner Percent of Meal Consumed 100% Urine Appearance Clear Urine Color Light Karen Urine Odor Strong # Voids 1 1 Head Head exam: Present normocephalic Eye Eye exam: Present EOMI, normal appearance and PERRL; Absent nystagmus and scleral icterus ENT ENT exam: Present mucous membranes moist and normal oropharynx Neck Neck exam: Present full ROM Respiratory Respiratory exam: Present normal respiratory exam and CTAB; Absent rales, respiratory distress, rhonchi and wheezes Cardiovascular Cardiovascular exam: Present normal rate and rhythm; Absent JVD GI/Abdominal GI/Abdominal exam: Present normal bowel sounds and soft; Absent mass and tenderness Extremities Exam Extremities exam: Present full ROM and normal inspection; Absent calf tenderness, pedal edema and tenderness Neurological Exam Neurological exam: Present CN II-XII intact and oriented X3; Absent abnormal gait Psychiatric Psychiatric exam: Present anxious OBJ DATA Labs CBC & Chem 7: 03/06/20 05:37 03/08/20 05:44 Labs: Abnormal Lab Results 03/08/20 03/06/20 05:44 05:37 Reactive Lymphocytes 3 H BUN 24 H Meds: Medications Acetaminophen (Tylenol) 500 mg PO Q6HP PRN; Protocol PRN Reason: Per Pain Protocol/Fever > 101 Last Admin: 03/07/20 19:23 Dose: 500 mg Documented by: Baclofen (Lioresal) 10 mg PO BID [facility] Last Admin: 03/08/20 09:01 Dose: 10 mg Documented by: Docusate Sodium (Colace) 100 mg PO BID [facility] Last Admin: 03/08/20 09:03 Dose: Not Given Documented by: Enoxaparin Sodium (Lovenox) 40 mg SQ DAILY [facility] Last Admin: 03/08/20 09:00 Dose: Not Given Documented by: Gabapentin (Neurontin) 300 mg PO QID [facility] Last Admin: 03/08/20 09:00 Dose: 300 mg Documented by: Ibuprofen (Motrin) 400 mg PO Q6HP PRN; Protocol PRN Reason: Per Pain Protocol Last Admin: 03/08/20 01:40 Dose: 400 mg Documented by: Iron Carb/Multivit/Dowel Machine Operator/Folic Acid (Multivitamin W/Minerals) 1 tab PO DAILY [facility] Last Admin: 03/08/20 09:01 Dose: 1 tab Documented by: Montelukast Sodium (Singular) 10 mg PO HS [facility] Last Admin: 03/07/20 21:05 Dose: 10 mg Documented by: Nicotine (Nicoderm) 21 mg TOPICAL DAILY@1000 [facility] Last Admin: 03/08/20 09:10 Dose: 21 mg Documented by: Ondansetron HCl (Zofran Odt) 4 mg SL Q6HP PRN PRN Reason: Nausea And Vomiting Last Admin: 03/07/20 09:13 Dose: 4 mg Documented by: Pantoprazole Sodium (Protonix) 40 mg PO ACB [facility] Last Admin: 03/08/20 07:19 Dose: 40 mg Documented by: Latuda 20 Mg Tablets 1 dose PO DAILY [facility] Last Admin: 03/08/20 09:01 Dose: 1 dose Documented by: Analilia (Senokot) 2 tab PO HS [facility] Last Admin: 03/07/20 21:04 Dose: 2 tab Documented by: Sodium Chloride (Saline Flush) 10 ml IV Q8 [facility] Last Admin: 03/08/20 04:42 Dose: Not Given Documented by: Vitamin B Complex (Vitamin B Complex) 1 cap PO BID [facility] Stop: 03/10/20 09:01 Last Admin: 03/08/20 09:01 Dose: 1 cap Documented by: A/P Assessment and plan (1) Alcohol use disorder, severe, dependence: Status: Acute (2) Alcohol withdrawal: Status: Acute Qualifiers: Complication of substance-induced condition: uncomplicated Qualified Code(s): F10.230 - Alcohol dependence with withdrawal, uncomplicated (3) Generalized anxiety disorder: Status: Chronic (4) Bipolar 1 disorder: Status: Acute Narrative A/P Narrative: Narrative: Patient's CIWA is 2 at bedside today and her last dose of Librium was 1 day ago. Discussed starting patient on disulfiram and discussed risks versus benefits of medication treatment. Patient agrees to take medication despite risk for medication induced hepatitis and understands the severe interactions of disulfiram with alcohol. Additionally patient was started on Latuda and discussed continuing patient on the medication. Discussed the importance of close follow-up in 1 week. Care has been coordinated with the nursing staff as well as regarding recommendation for discharge of patient today. Time Spent With Patient Time: Total time spent is greater than 50% in coordination of care (as documented) at patient's floor/unit and/or counseling patient: Total time spent with greater than 50% in coordination of care (as documented) at patient's floor/unit and/or counseling patient:: 25 - 35 minutes QUALITY VTE Deep Vein Thrombosis/Pulmonary Embolism Present on Admission: No
--- NOTE | 2020-03-08 10:08 | Discharge Summary ---
Discharge Provider Provider Patient information: Note initiated : 03/08/20 at 10:07 am Service Date, if different from initiated Date: [] Patient: Mehreen Devi 39 y/o F admitted on 03/05/20 for detox. Chief Complaint: [] Date of admission: 03/05/20 09:39 Discharge date: 03/08/20 Primary care physician: CINDA Lion Consults: 03/05/20 09:55 Consult to Physician [CONS] Routine Comment: Consulting Provider: Alexandria Quintana Reason For Exam: Physician to Consult Discharge Meds Discharge Medications Active and Home Medications: Home Medications montelukast 10 mg tablet 10 mg PO QHS #30 tab 02/14/20 [Rx Confirmed 03/05/20 Last Taken Unknown] disulfiram 250 mg tablet 250 mg PO QDAY #7 tab 02/16/20 [Rx Confirmed 03/05/20 Last Taken Unknown] naltrexone 50 mg tablet 50 mg PO QDAY #20 tab 02/16/20 [Rx Confirmed 03/05/20 Last Taken Unknown] COURSE Hospital Course Hospital Course: 39-year-old female with a no reported medical problems was admitted for alcohol withdrawal detoxification treatment. Patient has been drinking 5 vodka per day for the last few years. She reported I am a closet drinker patient denied any active other substance abuse or any family issues or other health issues. Review of system was unremarkable. Patient denied any active suicidal ideation. Patient had a previous attempt as a teenager when she tried to cut her vein. But no further suicidal ideation for the last few months. Patient lives with the family and good family support at home. Patient's dad has alcoholism and he drinks at home. Otherwise patient denied any social stressors or family stressors 03/06 Patient continued having some anxiety and depression Having some tremors and getting CIWA protocol with lorazepam Patient denied any other physical symptoms no constitutional symptoms No abdominal symptoms no diarrhea no constipation 03/07 Patient states she slept better than she has in a long time. She did have elevated ciwa score last night did receive treatment. She does have headaches which is pretty common for her and some nausea. 03/08 Slept well and feeling little better today. Eager to be discharged. Discharge diagnosis: Alcohol withdrawal detoxification, bipolar generalized anxiety disorder Time Spent with Patient Time attestation: Total time spent providing and/or coordinating discharge services: Time spent: Greater than 30 minutes EXAM Constitutional Vitals: Temp Pulse Resp BP Pulse Ox 97.4 F 58 L 14 120/80 98 03/08/20 08:00 03/08/20 08:00 03/08/20 08:00 03/08/20 08:00 03/08/20 08:00 Discharge Data Data Completed and Pending Labs on day of discharge: Labs from last 24 hours 03/08/20 05:44 Sodium 137 Potassium 4.7 Chloride 105 Carbon Dioxide 23 Anion Gap 9.0 BUN 24 H Creatinine 0.9 GFR Calculation 79 Glucose 95 Calcium 9.3 Magnesium 2.1 Total Bilirubin 0.2 AST 22 ALT 18 Alkaline Phosphatase 50 Total Protein 6.6 Albumin 4.1 Globulin 2.5 Albumin/Globulin Ratio 1.6 Discharge Plan Patient/Caregiver Discharge Instructions Activity: increase activity as tolerated Diet: Regular Diet Instructions: Lurasidone (By mouth), Abuse of Alcohol (DC), Alcohol Dependence (DC), Alcohol Use Disorder (DC) Activity Restrictions/Additional Instructions: Regular diet as tolerated. Activity as tolerated. Prescriptions: Continued disulfiram 250 mg tablet 250 mg tablet 250 mg PO QDAY Qty: 7 RF: 0 naltrexone 50 mg tablet 50 mg PO QDAY Qty: 20 RF: 0 montelukast [Singulair] 10 mg tablet 10 mg PO QHS Qty: 30 RF: 2 Follow Up Plan Follow up with: Alexandria Quintana DO [Physician] - 03/15/20 4:00 pm Patient Disposition: Home, Self-Care Rehab Potential: Fair Discharge Orders: Discharge Order (Routine); Ordered 03/08/20 Ordered By: Ravinder Harman [facility] VTE Deep Vein Thrombosis/Pulmonary Embolism Present on Admission: No
== END 2020-03-08 10:30 | disposition home or self-care (01) | DRG 897 ==
LOC: MEDSUR 09:39
PROVIDERS: ADMIT Internal Medicine; ATTEND Internal Medicine